=== PATIENT | female | born 1950 | race Native Hawaiian/Other Pacific Islander ===

== ENCOUNTER 2018-03-06 11:08 | Inpatient (IN) | payer OTHER ==
--- NOTE | 2018-03-06 11:20 | Emergency Department Report ---
ED Altered Mental Status HPI - General Chief Complaint: Weakness Stated Complaint: ALTERED MENTAL STATUS Time Seen by Provider: 03/06/18 11:14 Source: patient, family (caregiver at the bedside), EMS (verbal report received from EMS.ems notes not available at time of chart dictation), RN notes reviewed Mode of arrival: Stretcher Limitations: Altered Mental Status, Physical Limitation - History of Present Illness Initial Comments: This is a 67-year-old female, not known to this provider previously, has a past medical history of stroke with residual right-sided weakness, hypertension, high cholesterol. Brought to the hospital by EMS for generalized weakness. As per the patient's caregiver, she thinks a last known well time was 8:00 but is not certain. She reports that she got the patient this morning at about 8:00, patient was complaining of weakness, didn't really have much speech disturbance , patient was walking to the bathroom, and collapsed, was found to be hypotensive with a blood pressure in the 80s, given midodrine, which she promptly vomited. Patient presented to the ER with EMS at 11:00 AM. EMS reported a normal fingerstick, persistent right-sided weakness. Patient initially had no complaint, and followed commands appropriately. She was giving one-word responses but her responses were sensical At 11:34 AM, patient was following commands, but her verbal responses became nonsensical. Code stroke was called overhead. A noncontrast CT scan of the brain was negative. Glucose was appropriate. Patient is interviewed by network systems consultant stroke neurology, Dr. Tai Reed. Her speech improved. Dr. Reed also interviewed the patient's caregiver, and we could not tack down the time definitively as to what the patient's last known well time was. Currently, the patient is at her neurologic baseline as per her caregiver, speaking in sentences that makes sense, with persistent right-sided weakness. Dr. Reed did not recommend TPA and I concur. An emergent CT angiogram of the head and neck is pending. Urinalysis is pending. MD Complaint: altered mental status, confusion, decreased responsiveness, weakness -: Gradual Severity: moderate Consistency of Symptoms: waxing and waning Associated Symptoms: loss of appetite, malaise, weakness, difficulty walking. denies: chest pain, cough, diaphoresis, fever/chills, headaches, nausea/vomiting , rash, seizure, shortness of breath, syncope - Related Data Home Medications Medication Instructions Recorded Confirmed Last Taken Gabapentin 800 mg PO BID 10/15/13 03/06/18 Unknown Insulin Glargine,Hum.rec.anlog 13 units SUB-Q QAM 10/15/13 03/06/18 Unknown [Lantus] Insulin Lispro [Humalog] 0 units SQ AC 10/15/13 03/06/18 Unknown Pantoprazole [Protonix] 40 mg PO BID 10/15/13 03/06/18 03/06/18 Potassium Chloride [K-Dur] 20 meq PO TID 10/15/13 03/06/18 Unknown Aspirin EC [Ecotrin] 325 mg PO QDAY 10/20/15 03/06/18 Unknown Atorvastatin [Lipitor Tab] 40 mg PO QHS 10/20/15 03/06/18 Unknown Sertraline [Zoloft] 75 mg PO QDAY 10/20/15 03/06/18 Unknown Vitamin B Complex [B Complex] 1 each PO DAILY 10/20/15 03/06/18 Unknown Cetirizine HCl [Zyrtec] 10 mg PO DAILY 03/06/18 03/06/18 Unknown Dexamethasone [Decadron] 0.75 mg PO DAILY 03/06/18 03/06/18 Unknown Ferrous Gluconate [Fergon 325 MG 325 mg PO QDAY 03/06/18 03/06/18 Unknown tab] Fludrocortisone [Florinef Tab] 0.05 mg PO DAILY 03/06/18 03/06/18 Unknown Levothyroxine [Synthroid] 37.5 mcg PO QAM 03/06/18 03/06/18 03/06/18 Linaclotide [Linzess] 145 mcg PO QDAY 03/06/18 03/06/18 Unknown Midodrine [Proamatine] 5 mg PO QAM 03/06/18 03/06/18 Unknown Ubidecarenone [Coq-10] 100 mg PO DAILY 03/06/18 03/06/18 Unknown Vitamin E 800 unit PO DAILY 03/06/18 03/06/18 Unknown Allergies Allergy/AdvReac Type Severity Reaction Status Date / Time morphine Allergy Unknown Verified 10/15/13 23:46 Sulfa (Sulfonamide Allergy Hives Verified 10/15/13 21:58 Antibiotics) codeine AdvReac Unknown Verified 10/15/13 20:08 fexofenadine HCl AdvReac Unknown Verified 10/15/13 20:08 [From Jahaira] ED Review of Systems ROS: Stated complaint: ALTERED MENTAL STATUS Other details as noted in HPI Comment: Unobtainable due to pts medical conditions ED Past Medical Hx - Past Medical History Hx Hypertension: Yes Hx CVA: Yes (June 2015 right-sided weakness some speech difficulty) Hx Diabetes: Yes Hx GERD: Yes Additional medical history: HYPOTHYROID. ADRENAL INSUFF - Surgical History Hx Cholecystectomy: Yes Hx Appendectomy: Yes Additional Surgical History: pituitary - Social History Smoking Status: Never Smoker Substance Use Type: None - Medications Home Medications: Home Medications Medication Instructions Recorded Confirmed Last Taken Type Gabapentin 800 mg PO BID 10/15/13 03/06/18 Unknown History Insulin Glargine,Hum.rec.anlog 13 units SUB-Q QAM 10/15/13 03/06/18 Unknown History [Lantus] Insulin Lispro [Humalog] 0 units SQ AC 10/15/13 03/06/18 Unknown History Pantoprazole [Protonix] 40 mg PO BID 10/15/13 03/06/18 03/06/18 History Potassium Chloride [K-Dur] 20 meq PO TID 10/15/13 03/06/18 Unknown History Aspirin EC [Ecotrin] 325 mg PO QDAY 10/20/15 03/06/18 Unknown History Atorvastatin [Lipitor Tab] 40 mg PO QHS 10/20/15 03/06/18 Unknown History Sertraline [Zoloft] 75 mg PO QDAY 10/20/15 03/06/18 Unknown History Vitamin B Complex [B Complex] 1 each PO DAILY 10/20/15 03/06/18 Unknown History Cetirizine HCl [Zyrtec] 10 mg PO DAILY 03/06/18 03/06/18 Unknown History Dexamethasone [Decadron] 0.75 mg PO DAILY 03/06/18 03/06/18 Unknown History Ferrous Gluconate [Fergon 325 MG 325 mg PO QDAY 03/06/18 03/06/18 Unknown History tab] Fludrocortisone [Florinef Tab] 0.05 mg PO DAILY 03/06/18 03/06/18 Unknown History Levothyroxine [Synthroid] 37.5 mcg PO QAM 03/06/18 03/06/18 03/06/18 History Linaclotide [Linzess] 145 mcg PO QDAY 03/06/18 03/06/18 Unknown History Midodrine [Proamatine] 5 mg PO QAM 03/06/18 03/06/18 Unknown History Ubidecarenone [Coq-10] 100 mg PO DAILY 03/06/18 03/06/18 Unknown History Vitamin E 800 unit PO DAILY 03/06/18 03/06/18 Unknown History ED Physical Exam - General Limitations: Altered Mental Status, Physical Limitation General appearance: in no apparent distress - Head Head exam: Present: atraumatic - Eye Eye exam: Present: normal appearance, EOMI - ENT ENT exam: Present: normal exam, normal orophraynx, normal external ear exam - Neck Neck exam: Present: normal inspection, full ROM. Absent: tenderness, meningismus - Respiratory Respiratory exam: Present: normal lung sounds bilaterally. Absent: respiratory distress, wheezes, rales, rhonchi, stridor, chest wall tenderness - Cardiovascular Cardiovascular Exam: Present: regular rate, normal rhythm, normal heart sounds. Absent: bradycardia, tachycardia, irregular rhythm, systolic murmur, diastolic murmur, rubs, gallop - GI/Abdominal GI/Abdominal exam: Present: soft. Absent: distended, tenderness, guarding, rebound, rigid, organomegaly, pulsatile mass - Extremities Exam Extremities exam: Present: other (2+ pulses noted in the bilateral upper, lower extremities. Compartments soft. No long bony tenderness. The pelvis is stable.). Absent: normal inspection (abrasions noted to the lower extremities) , calf tenderness - Back Exam Back exam: Present: normal inspection, full ROM. Absent: tenderness, CVA tenderness (R), paraspinal tenderness - Neurological Exam Neurological exam: Present: altered, motor sensory deficit (5-5 strength left upper, left lower extremity. Sensation intact to light touch in 4 extremities. 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 Extraocular movements are intact bilaterally. The tongue is midline.) - Psychiatric Psychiatric exam: Present: flat affect - Skin Skin exam: Present: dry - Assessment Assessment Interval: Baseline - Level of Consciousness 1a. Level of Consciousness: not alert, arousable - LOC Questions 1b. LOC Questions: answers 1 question correctly - LOC Command 1c. LOC Commands: performs 1 task correctly - Best Gaze 2. Best Gaze: normal - Visual 3. Visual: no visual loss - Facial Palsy 4. Facial Palsy: complete paralysis - Motor Arm 5b. Motor Arm Right: no gravity effort 5a. Motor Arm Left: no drift - Motor Leg 6a. Motor Leg Left: no gravity effort 6b. Motor Leg Right: no gravity effort - Limb Ataxia 7. Limb Ataxia: absent - Sensory 8. Sensory: mild/moderate sensory loss - Best Language 9. Best Language: no aphasia - Dysarthria 10. Dysarthria: mild/moderate dysarthria - Extinction and Inattention 11. Extinction/Inattention: visual/tactile inattention - Scoring Total Score: 18 Stroke Severity: Moderate to Severe Stroke ED Course Vital Signs 03/06/18 03/06/18 03/06/18 11:25 11:54 12:01 Temperature 97.7 F Pulse Rate 61 62 63 Respiratory 17 20 18 Rate Blood Pressure 129/57 Blood Pressure 132/64 [Right] O2 Sat by Pulse 99 85 94 Oximetry 03/06/18 03/06/18 03/06/18 12:15 12:30 12:45 Temperature Pulse Rate 58 L 61 60 Respiratory 20 13 14 Rate Blood Pressure 141/50 133/61 141/67 Blood Pressure [Right] O2 Sat by Pulse 96 Oximetry 03/06/18 03/06/18 13:00 13:15 Temperature Pulse Rate 60 60 Respiratory 15 12 Rate Blood Pressure 135/63 139/65 Blood Pressure [Right] O2 Sat by Pulse Oximetry - Reevaluation(s) Reevaluation #1: 03/06/18 13:42 Phone conversation habit patient's daughter, Saira. She is informed verbal consent over the phone for CT angiogram. Laboratory studies reviewed and appreciated. Elevated lactic acid and leukocytosis of 15 appreciated, however they stop her current presentation and nonspecific neurologic symptoms, I do not think bacteremia or systemic bacterial illness is the likely etiology of her presentation. It is therefore mild pain at the patient will not benefit from aggressive sepsis resuscitation. IV fluids have been ordered, potassium supplementation has been ordered, and urinalysis is pending at this time. Given the patient is currently being worked up for stroke/subacute stroke, it is imperative that she have her imaging done in an expedient fashion to exclude surgical disease. Reevaluation #2: 03/06/18 16:09 CT of the head is negative. CT angiogram of the neck is negative Hospital physician, Dr. Foley accepted the patient to the medical service. - Lab Data Result diagrams: 03/06/18 12:52 03/06/18 12:01 Lab Results 03/06/18 03/06/18 03/06/18 Range/Units 11:21 12:01 12:01 WBC (4.5-11.0) K/mm3 RBC (3.65-5.03) M/mm3 Hgb (10.1-14.3) gm/dl Hct (30.3-42.9) % MCV (79-97) fl MCH (28-32) pg MCHC (30-34) % RDW (13.2-15.2) % Plt Count (140-440) K/mm3 Lymph % (Auto) (13.4-35.0) % Mer[place]ether % (Auto) (0.0-7.3) % Eos % (Auto) (0.0-4.3) % Baso % (Auto) (0.0-1.8) % Lymph # (1.2-5.4) K/mm3 Meriwether # (0.0-0.8) K/mm3 Eos # (0.0-0.4) K/mm3 Baso # (0.0-0.1) K/mm3 Seg Neutrophils % (40.0-70.0) % Seg Neutrophils # (1.8-7.7) K/mm3 PT 14.2 (12.2-14.9) Sec. INR 1.05 (0.87-1.13) APTT 24.5 (24.2-36.6) Sec. Thrombin Time 16.2 (15.1-19.6) Sec. Sodium 140 (137-145) mmol/L Potassium 3.4 L (3.6-5.0) mmol/L Chloride 106.0 (98-107) mmol/L Carbon Dioxide 17 L (22-30) mmol/L Anion Gap 20 mmol/L BUN 14 (7-17) mg/dL Creatinine 0.7 (0.7-1.2) mg/dL Estimated GFR > 60 ml/min BUN/Creatinine Ratio 20 % Glucose 200 H (65-100) mg/dL POC Glucose 245 H (70-105) Lactic Acid (0.7-2.0) mmol/L Calcium 8.6 (8.4-10.2) mg/dL Total Bilirubin 0.40 (0.1-1.2) mg/dL AST 28 (5-40) units/L ALT 18 (7-56) units/L Alkaline Phosphatase 90 (35-129) units/L Ammonia (25-60) umol/L Total Creatine Kinase 146 H (30-135) units/L Troponin T < 0.010 (0.00-0.029) ng/mL Total Protein 6.4 (6.3-8.2) g/dL Albumin 3.5 L (3.9-5) g/dL Albumin/Globulin Ratio 1.2 % TSH (0.270-4.200) mlU/mL Salicylates (2.8-20.0) mg/dL Acetaminophen (10.0-30.0) ug/mL Plasma/Serum Alcohol (0-0.07) % Blood Type Antibody Screen 03/06/18 03/06/18 03/06/18 Range/Units 12:01 12:01 12:01 WBC (4.5-11.0) K/mm3 RBC (3.65-5.03) M/mm3 Hgb (10.1-14.3) gm/dl Hct (30.3-42.9) % MCV (79-97) fl MCH (28-32) pg MCHC (30-34) % RDW (13.2-15.2) % Plt Count (140-440) K/mm3 Lymph % (Auto) (13.4-35.0) % Meriwether % (Auto) (0.0-7.3) % Eos % (Auto) (0.0-4.3) % Baso % (Auto) (0.0-1.8) % Lymph # (1.2-5.4) K/mm3 Meriwether # (0.0-0.8) K/mm3 Eos # (0.0-0.4) K/mm3 Baso # (0.0-0.1) K/mm3 Seg Neutrophils % (40.0-70.0) % Seg Neutrophils # (1.8-7.7) K/mm3 PT (12.2-14.9) Sec. INR (0.87-1.13) APTT (24.2-36.6) Sec. Thrombin Time (15.1-19.6) Sec. Sodium (137-145) mmol/L Potassium (3.6-5.0) mmol/L Chloride (98-107) mmol/L Carbon Dioxide (22-30) mmol/L Anion Gap mmol/L BUN (7-17) mg/dL Creatinine (0.7-1.2) mg/dL Estimated GFR ml/min BUN/Creatinine Ratio % Glucose (65-100) mg/dL POC Glucose (70-105) Lactic Acid 4.10 H* (0.7-2.0) mmol/L Calcium (8.4-10.2) mg/dL Total Bilirubin (0.1-1.2) mg/dL AST (5-40) units/L ALT (7-56) units/L Alkaline Phosphatase (35-129) units/L Ammonia 60.0 (25-60) umol/L Total Creatine Kinase (30-135) units/L Troponin T (0.00-0.029) ng/mL Total Protein (6.3-8.2) g/dL Albumin (3.9-5) g/dL Albumin/Globulin Ratio % TSH 0.522 (0.270-4.200) mlU/mL Salicylates (2.8-20.0) mg/dL Acetaminophen (10.0-30.0) ug/mL Plasma/Serum Alcohol (0-0.07) % Blood Type Antibody Screen 03/06/18 03/06/18 03/06/18 Range/Units 12:01 12:01 12:01 WBC (4.5-11.0) K/mm3 RBC (3.65-5.03) M/mm3 Hgb (10.1-14.3) gm/dl Hct (30.3-42.9) % MCV (79-97) fl MCH (28-32) pg MCHC (30-34) % RDW (13.2-15.2) % Plt Count (140-440) K/mm3 Lymph % (Auto) (13.4-35.0) % Meriwether % (Auto) (0.0-7.3) % Eos % (Auto) (0.0-4.3) % Baso % (Auto) (0.0-1.8) % Lymph # (1.2-5.4) K/mm3 Meriwether # (0.0-0.8) K/mm3 Eos # (0.0-0.4) K/mm3 Baso # (0.0-0.1) K/mm3 Seg Neutrophils % (40.0-70.0) % Seg Neutrophils # (1.8-7.7) K/mm3 PT (12.2-14.9) Sec. INR (0.87-1.13) APTT (24.2-36.6) Sec. Thrombin Time (15.1-19.6) Sec. Sodium (137-145) mmol/L Potassium (3.6-5.0) mmol/L Chloride (98-107) mmol/L Carbon Dioxide (22-30) mmol/L Anion Gap mmol/L BUN (7-17) mg/dL Creatinine (0.7-1.2) mg/dL Estimated GFR ml/min BUN/Creatinine Ratio % Glucose (65-100) mg/dL POC Glucose (70-105) Lactic Acid (0.7-2.0) mmol/L Calcium (8.4-10.2) mg/dL Total Bilirubin (0.1-1.2) mg/dL AST (5-40) units/L ALT (7-56) units/L Alkaline Phosphatase (35-129) units/L Ammonia (25-60) umol/L Total Creatine Kinase (30-135) units/L Troponin T (0.00-0.029) ng/mL Total Protein (6.3-8.2) g/dL Albumin (3.9-5) g/dL Albumin/Globulin Ratio % TSH (0.270-4.200) mlU/mL Salicylates < 0.3 L (2.8-20.0) mg/dL Acetaminophen < 5.0 L (10.0-30.0) ug/mL Plasma/Serum Alcohol < 0.01 (0-0.07) % Blood Type Antibody Screen 03/06/18 03/06/18 03/06/18 Range/Units 12:04 12:08 12:52 WBC 15.7 H (4.5-11.0) K/mm3 RBC 4.54 (3.65-5.03) M/mm3 Hgb 13.8 (10.1-14.3) gm/dl Hct 41.8 (30.3-42.9) % MCV 92 (79-97) fl MCH 30 (28-32) pg MCHC 33 (30-34) % RDW 14.6 (13.2-15.2) % Plt Count 236 (140-440) K/mm3 Lymph % (Auto) 10.5 L (13.4-35.0) % Meriwether % (Auto) 9.5 H (0.0-7.3) % Eos % (Auto) 1.0 (0.0-4.3) % Baso % (Auto) 0.9 (0.0-1.8) % Lymph # 1.6 (1.2-5.4) K/mm3 Meriwether # 1.5 H (0.0-0.8) K/mm3 Eos # 0.2 (0.0-0.4) K/mm3 Baso # 0.1 (0.0-0.1) K/mm3 Seg Neutrophils % 78.1 H (40.0-70.0) % Seg Neutrophils # 12.3 H (1.8-7.7) K/mm3 PT (12.2-14.9) Sec. INR (0.87-1.13) APTT (24.2-36.6) Sec. Thrombin Time (15.1-19.6) Sec. Sodium (137-145) mmol/L Potassium (3.6-5.0) mmol/L Chloride (98-107) mmol/L Carbon Dioxide (22-30) mmol/L Anion Gap mmol/L BUN (7-17) mg/dL Creatinine (0.7-1.2) mg/dL Estimated GFR ml/min BUN/Creatinine Ratio % Glucose (65-100) mg/dL POC Glucose 213 H (70-105) Lactic Acid (0.7-2.0) mmol/L Calcium (8.4-10.2) mg/dL Total Bilirubin (0.1-1.2) mg/dL AST (5-40) units/L ALT (7-56) units/L Alkaline Phosphatase (35-129) units/L Ammonia (25-60) umol/L Total Creatine Kinase (30-135) units/L Troponin T (0.00-0.029) ng/mL Total Protein (6.3-8.2) g/dL Albumin (3.9-5) g/dL Albumin/Globulin Ratio % TSH (0.270-4.200) mlU/mL Salicylates (2.8-20.0) mg/dL Acetaminophen (10.0-30.0) ug/mL Plasma/Serum Alcohol (0-0.07) % Blood Type O POSITIVE Antibody Screen Negative 03/06/18 03/06/18 Range/Units 12:52 13:41 WBC (4.5-11.0) K/mm3 RBC (3.65-5.03) M/mm3 Hgb (10.1-14.3) gm/dl Hct (30.3-42.9) % MCV (79-97) fl MCH (28-32) pg MCHC (30-34) % RDW (13.2-15.2) % Plt Count (140-440) K/mm3 Lymph % (Auto) (13.4-35.0) % [place] % (Auto) (0.0-7.3) % Eos % (Auto) (0.0-4.3) % Baso % (Auto) (0.0-1.8) % Lymph # (1.2-5.4) K/mm3 [place] # (0.0-0.8) K/mm3 Eos # (0.0-0.4) K/mm3 Baso # (0.0-0.1) K/mm3 Seg Neutrophils % (40.0-70.0) % Seg Neutrophils # (1.8-7.7) K/mm3 PT (12.2-14.9) Sec. INR (0.87-1.13) APTT (24.2-36.6) Sec. Thrombin Time (15.1-19.6) Sec. Sodium (137-145) mmol/L Potassium (3.6-5.0) mmol/L Chloride (98-107) mmol/L Carbon Dioxide (22-30) mmol/L Anion Gap mmol/L BUN (7-17) mg/dL Creatinine (0.7-1.2) mg/dL Estimated GFR ml/min BUN/Creatinine Ratio % Glucose (65-100) mg/dL POC Glucose (70-105) Lactic Acid 2.50 H* 3.10 H* (0.7-2.0) mmol/L Calcium (8.4-10.2) mg/dL Total Bilirubin (0.1-1.2) mg/dL AST (5-40) units/L ALT (7-56) units/L Alkaline Phosphatase (35-129) units/L Ammonia (25-60) umol/L Total Creatine Kinase (30-135) units/L Troponin T (0.00-0.029) ng/mL Total Protein (6.3-8.2) g/dL Albumin (3.9-5) g/dL Albumin/Globulin Ratio % TSH (0.270-4.200) mlU/mL Salicylates (2.8-20.0) mg/dL Acetaminophen (10.0-30.0) ug/mL Plasma/Serum Alcohol (0-0.07) % Blood Type Antibody Screen - EKG Data -: EKG Interpreted by Me Rate: bradycardia 03/06/18 13:47 Bradycardia, 59 bpm, borderline left axis deviation, low voltage, motion artifact, QTC within normal limits, not a stemi - Radiology Data Radiology results: report reviewed, image reviewed interpreted by me: X-ray of the chest, interpreted by me, no acute disease Contrast CT scan of the brain, interpreted by radiology, no acute disease. Old infarcts noted. - Core Measures Measure Exclusions: not indicated - NEXUS Criteria Focal neurological deficit present: No Midline spinal tenderness present: No Altered level of consciousness: Yes (there is no trauma, therefore the patient does not require cervical spine i) Intoxication present: No Distracting injury present: No NEXUS results: C-Spine cannot be cleared clinically by these results. Imaging is required. Critical care attestation.: If time is entered above; I have spent that time in minutes in the direct care of this critically ill patient, excluding procedure time. ED Disposition Clinical Impression: Weakness, History of hypotension Disposition: OP ADMIT IP TO THIS HOSP Is pt being admited?: Yes Does the pt Need Aspirin: Yes Condition: Good Referrals: PRIMARY CARE, [Primary Care Provider] - 3-5 Days
--- NOTE | 2018-03-06 12:07 | Cat Scan Report ---
CT head without contrast: Altered mental status. Axial images demonstrates diffuse widening of the peripheral sulci and mild enlargement of the lateral ventricles. There is suspicion of possible infarction of the low left frontal region although this may just be due to prominence of this patient's bilateral decreased white matter change. No focal findings otherwise identified. No evidence of hemorrhage and no extracerebral collections. Compared to a prior exam in 2013 these findings all appear new. There has been a small osteotomy just above the left orbit. The visualized bony structures otherwise appear generally unremarkable. There is some mucoperiosteal thickening involving a portion of the left sphenoid sinus. The sinuses appear improved compared to her prior examination and the osteotomy is unchanged. Impression: Markedly advanced senescent changes compared to prior exam. No acute finding suspected.
[2018-03-06] MEDS ORDERED: NACL 0.9% 1000 ML 1,000 ML IV ONE (12:37)
[2018-03-06 12:46] LABS: INR 1.05 (0.87-1.13); Partial Thromboplastin Time 24.5 Sec. (24.2-36.6); Thrombin Time 16.2 Sec. (15.1-19.6)
[2018-03-06 13:11] LABS: Alanine Aminotransferase 18 units/L (7-56); Albumin 3.5 g/dL (3.9-5); BUN/Creatinine Ratio 20; Blood Urea Nitrogen 14 mg/dL (7-17); Calcium 8.6 mg/dL (8.4-10.2); Hemolysis Index 40
[2018-03-06 13:13] LABS: Basophils # (Auto) 0.1 K/mm3 (0.0-0.1); Basophils % (Auto) 0.9 % (0.0-1.8); Eosinophils # (Auto) 0.2 K/mm3 (0.0-0.4); Hematocrit 41.8 % (30.3-42.9); Hemoglobin 13.8 gm/dl (10.1-14.3); Lymphocytes # (Auto) 1.6 K/mm3 (1.2-5.4); Lymphocytes % (Auto) 10.5 % (13.4-35.0); Mean Corpuscular HGB Conc 33 % (30-34); Mean Corpuscular Hemoglobin 30 pg (28-32); Mean Corpuscular Volume 92 fl (79-97); Monocytes # (Auto) 1.5 K/mm3 (0.0-0.8); Monocytes % (Auto) 9.5 % (0.0-7.3); Platelet Count 236 K/mm3 (140-440); Red Blood Count 4.54 M/mm3 (3.65-5.03); Red Cell Distribution Width 14.6 % (13.2-15.2)
--- NOTE | 2018-03-06 14:17 | XRay Report ---
FINAL REPORT EXAM: XR CHEST 1V AP HISTORY: Altered Mental Status TECHNIQUE: Single, portable chest x-ray. PRIORS: None. FINDINGS: Cardiac and mediastinal silhouette within normal limits. Lungs are normally expanded, without significant vascular congestion. No focal consolidation or apparent pneumothorax. Degenerative changes scattered in thoracic spine and bilateral shoulders. IMPRESSION: 1. No acute findings.
[2018-03-06] MEDS: KCL 10MEQ/100ML 10 MEQ/100 ML BAG IV SCH ×4 (15:21→19:37)
--- NOTE | 2018-03-06 16:06 | Cat Scan Report ---
FINAL REPORT EXAM: CT ANGIO NECK HISTORY: CVA TECHNIQUE: CTA of the Head and Neck with IV contrast. Coronal and sagittal and MIP reconstructed imaging provided. Carotid stenosis calculated by the NASCET method. PRIORS: CT head March 06, 2018. FINDINGS: HEAD: [id number] disease at the cavernous carotids. No hemodynamically significant stenosis. The anterior and posterior circulations appear unremarkable. No aneurysm. No dissection. No vascular malformation. NECK: RIGHT CAROTID: Origin: Unremarkable. Common: Retropharyngeal. Unremarkable. Bifurcation: Unremarkable. Internal: Unremarkable. External: Unremarkable. No aneurysm. No dissection. No vascular malformation. LEFT CAROTID: Origin: Unremarkable. Common: Retropharyngeal. Unremarkable. Bifurcation: Unremarkable. Internal: Unremarkable. External: Unremarkable. No aneurysm. No dissection. No vascular malformation. VERTEBRALS: Left is dominant. No aneurysm. No dissection. No vascular malformation. Mild aortic atherosclerotic disease at the horizontal aorta. Major branch arteries are grossly unremarkable. No aneurysm or dissection of the partially imaged thoracic aorta. IMPRESSION: Unremarkable.
[2018-03-06] MEDS ORDERED: BABY ASPIRIN PO ONE (16:10)
--- NOTE | 2018-03-06 16:30 | History and Physical Report ---
History of Present Illness Chief complaint: She is weak and confused... this is new History of present illness: 67 YO Female with HTN, CVA with RHP, DM, GERD, Hypothyroidism, Adrenal Insufficiency, HLD presents to ED for evaluation. Pt is confused and unable to provide detailed history. Pt history provided by caregiver, who is at bedside during exam and interview. per caregiver, the patient was in her usual state of health at bedtime around 2000hrs. The patient awoke this morning with worsened right sided weakness, slightly slurred speech and unsteady gait. Pt was to the bathroom, and collapsed. EMS was notified, and upon arrival the patient was found to be hypotensive with a blood pressure in the 80s. A code stroke was called and the patient was transported to [facility] for further care and evaluation. Pt seen and evaluated in ED and found to have symptoms consistent with CVA. Teleneurology consulted. Pt not a candidate for TPA. Pt admitted to telemetry and initiated on CVA protocol. Past History Past Medical History: diabetes, GERD, hypertension, stroke Past Surgical History: appendectomy, cholecystectomy, Other (Pituitary) Social history: . denies: smoking, alcohol abuse, prescription drug abuse Family history: diabetes, hypertension Medications and Allergies Allergies Allergy/AdvReac Type Severity Reaction Status Date / Time morphine Allergy Unknown Verified 10/15/13 23:46 Sulfa (Sulfonamide Allergy Hives Verified 10/15/13 21:58 Antibiotics) codeine AdvReac Unknown Verified 10/15/13 20:08 fexofenadine HCl AdvReac Unknown Verified 10/15/13 20:08 [From [facility]] Home Medications Medication Instructions Recorded Confirmed Last Taken Type Gabapentin 800 mg PO BID 10/15/13 03/06/18 Unknown History Insulin Glargine,Hum.rec.anlog 13 units SUB-Q QAM 10/15/13 03/06/18 Unknown History [Lantus] Insulin Lispro [Humalog] 0 units SQ AC 10/15/13 03/06/18 Unknown History Pantoprazole [Protonix] 40 mg PO BID 10/15/13 03/06/18 03/06/18 History Potassium Chloride [K-Dur] 20 meq PO TID 10/15/13 03/06/18 Unknown History Aspirin EC [Ecotrin] 325 mg PO QDAY 10/20/15 03/06/18 Unknown History Atorvastatin [Lipitor Tab] 40 mg PO QHS 10/20/15 03/06/18 Unknown History Sertraline [Zoloft] 75 mg PO QDAY 10/20/15 03/06/18 Unknown History Vitamin B Complex [B Complex] 1 each PO DAILY 10/20/15 03/06/18 Unknown History Cetirizine HCl [Zyrtec] 10 mg PO DAILY 03/06/18 03/06/18 Unknown History Dexamethasone [Decadron] 0.75 mg PO DAILY 03/06/18 03/06/18 Unknown History Ferrous Gluconate [Fergon 325 MG 325 mg PO QDAY 03/06/18 03/06/18 Unknown History tab] Fludrocortisone [Florinef Tab] 0.05 mg PO DAILY 03/06/18 03/06/18 Unknown History Levothyroxine [Synthroid] 37.5 mcg PO QAM 03/06/18 03/06/18 03/06/18 History Linaclotide [Linzess] 145 mcg PO QDAY 03/06/18 03/06/18 Unknown History Midodrine [Proamatine] 5 mg PO QAM 03/06/18 03/06/18 Unknown History Ubidecarenone [Coq-10] 100 mg PO DAILY 03/06/18 03/06/18 Unknown History Vitamin E 800 unit PO DAILY 03/06/18 03/06/18 Unknown History Active Meds: Active Medications Potassium Chloride (Kcl 10meq/100ml) 10 meq in 100 mls @ 100 mls/hr IV Q1H BEATA Stop: 03/06/18 17:59 Last Admin: 03/06/18 15:21 Dose: 100 mls/hr Review of Systems ROS unobtainable: due to mental status Exam - Constitutional Vitals: Temp Pulse Resp BP Pulse Ox 97.7 F 60 12 139/65 96 03/06/18 11:25 03/06/18 13:15 03/06/18 13:15 03/06/18 13:15 03/06/18 12:30 General appearance: Present: mild distress - EENT Eyes: Present: PERRL ENT: hearing intact, clear oral mucosa - Neck Neck: Present: supple, normal ROM - Respiratory Respiratory effort: normal Respiratory: bilateral: CTA - Cardiovascular Heart Sounds: Present: S1 & S2. Absent: rub, click - Extremities Extremities: pulses symmetrical, No edema Peripheral Pulses: within normal limits - Abdominal General gastrointestinal: Present: soft, non-tender, non-distended, normal bowel sounds Female genitourinary: Present: normal - Integumentary Integumentary: Present: clear, warm, dry - Musculoskeletal Musculoskeletal: right sided weakness - Psychiatric Psychiatric: appropriate mood/affect, intact judgment & insight - Neurologic Neurologic: no CNII-XII intact, focal deficits, no moves all extremities, no gait normal Results - Labs CBC & Chem 7: 03/06/18 12:52 03/06/18 12:01 Labs: Abnormal lab results 03/06/18 03/06/18 03/06/18 Range/Units 11:21 12:01 12:01 WBC (4.5-11.0) K/mm3 Lymph % (Auto) (13.4-35.0) % [place] % (Auto) (0.0-7.3) % [place] # (0.0-0.8) K/mm3 Seg Neutrophils % (40.0-70.0) % Seg Neutrophils # (1.8-7.7) K/mm3 Potassium 3.4 L (3.6-5.0) mmol/L Carbon Dioxide 17 L (22-30) mmol/L Glucose 200 H (65-100) mg/dL POC Glucose 245 H (70-105) Lactic Acid 4.10 H* (0.7-2.0) mmol/L Total Creatine Kinase 146 H (30-135) units/L Albumin 3.5 L (3.9-5) g/dL Salicylates (2.8-20.0) mg/dL Acetaminophen (10.0-30.0) ug/mL 03/06/18 03/06/18 03/06/18 Range/Units 12:01 12:01 12:04 WBC (4.5-11.0) K/mm3 Lymph % (Auto) (13.4-35.0) % [place] % (Auto) (0.0-7.3) % [place] # (0.0-0.8) K/mm3 Seg Neutrophils % (40.0-70.0) % Seg Neutrophils # (1.8-7.7) K/mm3 Potassium (3.6-5.0) mmol/L Carbon Dioxide (22-30) mmol/L Glucose (65-100) mg/dL POC Glucose 213 H (70-105) Lactic Acid (0.7-2.0) mmol/L Total Creatine Kinase (30-135) units/L Albumin (3.9-5) g/dL Salicylates < 0.3 L (2.8-20.0) mg/dL Acetaminophen < 5.0 L (10.0-30.0) ug/mL 03/06/18 03/06/18 03/06/18 Range/Units 12:52 12:52 13:41 WBC 15.7 H (4.5-11.0) K/mm3 Lymph % (Auto) 10.5 L (13.4-35.0) % [place] % (Auto) 9.5 H (0.0-7.3) % [place] # 1.5 H (0.0-0.8) K/mm3 Seg Neutrophils % 78.1 H (40.0-70.0) % Seg Neutrophils # 12.3 H (1.8-7.7) K/mm3 Potassium (3.6-5.0) mmol/L Carbon Dioxide (22-30) mmol/L Glucose (65-100) mg/dL POC Glucose (70-105) Lactic Acid 2.50 H* 3.10 H* (0.7-2.0) mmol/L Total Creatine Kinase (30-135) units/L Albumin (3.9-5) g/dL Salicylates (2.8-20.0) mg/dL Acetaminophen (10.0-30.0) ug/mL Assessment and Plan - Patient Problems (1) CVA (cerebral vascular accident) Current Visit: Yes Status: Acute Qualifiers: Precerebral and cerebral artery: middle cerebral artery Laterality of affected vessel: left Plan to address problem: CVA Protocol: CT head, MRI Brain, MRA Brain, Neuro checks, eeg, Echo, carotid doppler, lipid panel, statin therapy, antiplatelet therapy, (2) Encephalopathy Current Visit: Yes Status: Acute Plan to address problem: CT Head, neuro checks, seizure precautions. (3) HTN (hypertension) Current Visit: Yes Status: Acute Qualifiers: Hypertension type: essential hypertension Qualified Code(s): I10 - Essential (primary) hypertension Plan to address problem: Monitor bp q shift, permissive hypertension overnight. (4) Diabetes Current Visit: Yes Status: Acute Plan to address problem: ADA diet, insulin, accu check (5) DVT prophylaxis Current Visit: Yes Status: Acute Plan to address problem: SCD to BLE while in bed.
[2018-03-06 16:37] LABS: Bilirubin,Urine NEG (Negative); Blood,Urine SM (Negative); Color,Urine Straw (Yellow); Mucus,Urine FEW /HPF; Protein,Urine <15 mg/dL mg/dL (Negative); Urobilinogen,Urine < 2.0 mg/dL (<2.0)
[2018-03-06] MEDS ORDERED: TYLENOL PR PRN (16:37)
[2018-03-06 16:38] LABS: WBC,Urine < 1.0 /HPF (0.0-6.0)
[2018-03-06] MEDS ORDERED: ASPIRIN PR ONE (16:47)
[2018-03-06] MEDS ORDERED: REGLAN PO PRN (17:02)
[2018-03-06] MEDS ORDERED: MILK OF MAGNESIA PO PRN (17:02)
[2018-03-06] MEDS ORDERED: SODIUM CHLORIDE FLUSH SYRINGE 10 ML IV PRN (17:02)
[2018-03-06] MEDS ORDERED: ZOFRAN IV PRN (17:02)
[2018-03-06] MEDS ORDERED: TYLENOL PO PRN (17:02)
[2018-03-06] MEDS ORDERED: DULCOLAX PR PRN (17:02)
[2018-03-06] MEDS ORDERED: PHENERGAN PR PRN (17:02)
[2018-03-06] MEDS ORDERED: DECADRON IV ONE (17:25)
[2018-03-06 19:49] VITALS: BP 180/78
[2018-03-06] MEDS ORDERED: K-DUR PO SCH (20:00)
[2018-03-06] MEDS ORDERED: NEURONTIN PO SCH (22:00)
[2018-03-06] MEDS ORDERED: PROTONIX PO SCH (22:00)
[2018-03-07] MEDS ORDERED: SYNTHROID PO SCH (06:00)
[2018-03-07] MEDS ORDERED: NON-FORMULARY (Ubidecarenone [Coq-10] 100 MG) PO SCH (10:00)
[2018-03-07] MEDS ORDERED: LANTUS SUB-Q SCH (10:00)
[2018-03-07] MEDS ORDERED: DEXAMETHASONE 0.75 MG PO SCH (10:00)
[2018-03-07] MEDS ORDERED: ASPIRIN PO SCH (10:00)
[2018-03-07] MEDS ORDERED: FERGON PO SCH (10:00)
[2018-03-07] MEDS ORDERED: PROAMATINE PO SCH (10:00)
[2018-03-07] MEDS ORDERED: NON-FORMULARY (Linaclotide [Linzess] 145 MCG) PO SCH (10:00)
[2018-03-07] MEDS ORDERED: VITAMIN E 800 UNIT PO SCH (10:00)
[2018-03-07] MEDS ORDERED: DECADRON PO SCH (10:00)
[2018-03-07] MEDS ORDERED: FLORINEF PO SCH (10:00)
[2018-03-07] MEDS ORDERED: ZOLOFT PO SCH (10:00)
[2018-03-07] MEDS ORDERED: NON-FORMULARY (Vitamin B Complex [B Complex] 1 EACH) PO SCH (10:00)
[2018-03-07] MEDS ORDERED: CLARITIN PO SCH (10:00)
[2018-03-07] MEDS ORDERED: VITAMIN E CAP PO SCH (10:00)
[2018-03-07] MEDS ORDERED: NON-FORMULARY (Cetirizine Hcl [Zyrtec] 10 MG) PO SCH (10:00)
[2018-03-07] MEDS ORDERED: ALLBEE WITH C PO SCH (10:00)
== END 2018-03-06 22:00 | disposition left against medical advice (07) | DRG 64 ==
LOC: ED 11:08 → 4A 17:02
PROVIDERS: ADMIT Internal Medicine; ATTEND Internal Medicine
DX: I63.9 Cerebral infarction, unspecified (principal); G93.40 Encephalopathy, unspecified; G81.91 Hemiplegia, unspecified affecting right dominant side; I10 Essential (primary) hypertension; E11.9 Type 2 diabetes mellitus without complications; K21.9 Gastro-esophageal reflux disease without esophagitis; E03.9 Hypothyroidism, unspecified; Z90.49 Acquired absence of other specified parts of digestive tract; Z82.49 Family history of ischemic heart disease and other diseases of the circulatory system; Z83.3 Family history of diabetes mellitus; Z88.5 Allergy status to narcotic agent; Z88.2 Allergy status to sulfonamides; Z79.4 Long term (current) use of insulin; Z79.899 Other long term (current) drug therapy; Z79.82 Long term (current) use of aspirin
CPT/HCPCS: 36415; 70450; 70496; 70498; 71045; 80053; 80320; 81001; 82140; 82550; 82962; 84443; 84484; 85025; 85610; 85670; 85730; 86850; 86900; 86901; 87086; 93005; 93010; 93880; A9270-GY; G0480; J1100; J1815; J3480; J7030; J8540; Q9967